=== PATIENT | male | born 1940 | race Caucasian/White ===

== ENCOUNTER → 2018-02-17 | Outpatient (CLI) | payer MEDICARE, OTHER ==
[2018-02-17 12:00] LABS: Basophils # (auto) 0 uL; Basophils % (auto) 0.7 % (0.0-2.0); Eosinophils # (auto) 0.2 uL; Hematocrit 46.5 % (41.0-53.0); Hemoglobin 15.6 g/dL (13.5-17.5); Lymphocytes # (auto) 1.6 uL; Lymphocytes % (auto) 24.6 % (10.0-50.0); Mean Corpuscular Hemoglobin 32.9 pg (28.0-32.0); Mean Corpuscular Hgb Conc. 33.6 g/dL (32.0-36.0); Mean Corpuscular Volume 97.8 fL (80.0-100.0); Monocytes # (auto) 0.4 uL; Monocytes % (auto) 6.7 % (0.0-12.0); Neutrophils # (auto) 4.2 uL; Nucleated Red Blood Cells % 0.1 %; Platelet Count (auto) 143 10^3/uL (140-450); Red Blood Cells 4.75 10^6/uL (4.5-5.90); Red Cell Distribution Width 13.2 % (11.8-14.3); White Blood Cell 6.5 10^3/uL (4.4-10.8)
[2018-02-17 12:03] LABS: Urine Blood Negative /uL (Negative); Urine Specific Gravity 1.016 (1.001-1.035)
[2018-02-17 12:16] LABS: Albumin 3.7 g/dL (3.4-5.0); BUN/Creatinine Ratio 19.4; Bilirubin, Total 0.9 mg/dL (0.2-1.0); Calcium 8.9 mg/dL (8.5-10.1); Potassium 4.2 mmol/L (3.5-5.1); Total Protein 6.7 g/dL (6.4-8.2)
[2018-02-17 12:19] LABS: Free T4 (Free Thyroxine) 1.28 ng/dL (0.89-1.76); Prostate Specific Antigen 1.02 ng/mL (0.0-4.0)
== END | disposition home or self-care (01) ==
LOC: LAB 08:22
PROVIDERS: ATTEND Internal Medicine
DX: E78.5 Hyperlipidemia, unspecified (principal); D64.9 Anemia, unspecified; I10 Essential (primary) hypertension; E11.9 Type 2 diabetes mellitus without complications; E03.9 Hypothyroidism, unspecified; E55.9 Vitamin D deficiency, unspecified; R53.81 Other malaise; R97.20 Elevated prostate specific antigen [PSA]; D51.9 Vitamin B12 deficiency anemia, unspecified; N39.0 Urinary tract infection, site not specified
CPT/HCPCS: 36415; 80053; 80061; 81003; 82306; 82607; 83036; 84153; 84403; 84439; 84443; 85025

== ENCOUNTER → 2019-01-14 | Outpatient (CLI) | payer MEDICARE, BC ==
[2019-01-14 11:59] LABS: Basophils # (auto) 0 uL; Basophils % (auto) 0.6 % (0.0-2.0); Eosinophils # (auto) 0.1 uL; Eosinophils % (auto) 2.3 % (0.0-7.0); Hemoglobin 15.9 g/dL (13.5-17.5); Lymphocytes # (auto) 1.3 uL; Lymphocytes % (auto) 21.4 % (10.0-50.0); Mean Corpuscular Hemoglobin 32.9 pg (28.0-32.0); Mean Corpuscular Hgb Conc. 33.8 g/dL (32.0-36.0); Mean Corpuscular Volume 97.4 fL (80.0-100.0); Monocytes # (auto) 0.4 uL; Monocytes % (auto) 7.1 % (0.0-12.0); Neutrophils # (auto) 4.3 uL; Neutrophils % (auto) 68.6 % (37.0-80.0); Nucleated Red Blood Cells % 0.1 %; Platelet Count (auto) 147 10^3/uL (140-450); Red Blood Cells 4.83 10^6/uL (4.5-5.90); Red Cell Distribution Width 13.3 % (11.8-14.3); White Blood Cell 6.3 10^3/uL (4.4-10.8)
[2019-01-14 12:03] LABS: Urine Blood Negative /uL (Negative); Urine Specific Gravity 1.016 (1.001-1.035)
[2019-01-14 12:04] LABS: INR 0.93 (0.9-1.15)
[2019-01-14 12:10] LABS: Potassium 4.2 mmol/L (3.5-5.1)
== END | disposition home or self-care (01) ==
LOC: Rad HDHVI 10:26
PROVIDERS: ATTEND Internal Medicine
DX: Z01.812 Encounter for preprocedural laboratory examination (principal); D64.9 Anemia, unspecified; R79.1 Abnormal coagulation profile; I10 Essential (primary) hypertension; N39.0 Urinary tract infection, site not specified; M17.11 Unilateral primary osteoarthritis, right knee; L92.0 Granuloma annulare; M25.561 Pain in right knee
CPT/HCPCS: 36415; 71046; 80048; 81003; 85025; 85610; 85730

== ENCOUNTER → 2020-11-05 | Outpatient (CLI) | payer MEDICARE, BC ==
[2020-11-05 11:39] LABS: Basophils # (auto) 0 10 ^3/uL (0-0.2); Basophils % (auto) 0.6 % (0.0-2.0); Eosinophils # (auto) 0.3 10 ^3/uL (0-0.8); Eosinophils % (auto) 4.1 % (0.0-7.0); Hematocrit 42.8 % (41.0-53.0); Hemoglobin 14.5 g/dL (13.5-17.5); Lymphocytes # (auto) 1.7 10 ^3/uL (0.4-5.4); Lymphocytes % (auto) 28.2 % (10.0-50.0); Mean Corpuscular Hemoglobin 33.9 pg (28.0-32.0); Mean Corpuscular Volume 99.8 fL (80.0-100.0); Monocytes # (auto) 0.5 10 ^3/uL (0-1.3); Monocytes % (auto) 7.8 % (0.0-12.0); Neutrophils # (auto) 3.6 10 ^3/uL (1.6-8.6); Neutrophils % (auto) 59.3 % (37.0-80.0); Nucleated Red Blood Cells % 0.1 %; Red Blood Cells 4.29 10^6/uL (4.5-5.90); Red Cell Distribution Width 12.8 % (11.8-14.3); White Blood Cell 6.1 10^3/uL (4.4-10.8)
[2020-11-05 11:45] LABS: Urine Blood Negative /uL (Negative); Urine Specific Gravity 1.019 (1.001-1.035)
[2020-11-05 11:59] LABS: Potassium 3.8 mmol/L (3.5-5.1)
[2020-11-05 12:01] LABS: Prostate Specific Antigen 0.94 ng/mL (0.0-4.0)
[2020-11-05 12:09] LABS: Albumin 3.4 g/dL (3.4-5.0); BUN/Creatinine Ratio 32.7; Bilirubin, Total 0.4 mg/dL (0.2-1.0); Calcium 8.6 mg/dL (8.5-10.1); Total Protein 6.5 g/dL (6.4-8.2)
== END | disposition home or self-care (01) ==
LOC: LAB 08:21
PROVIDERS: ATTEND Internal Medicine
DX: C61 Malignant neoplasm of prostate (principal); D51.3 Other dietary vitamin B12 deficiency anemia; I10 Essential (primary) hypertension; E11.9 Type 2 diabetes mellitus without complications; E55.9 Vitamin D deficiency, unspecified; R00.2 Palpitations; R53.1 Weakness; R30.0 Dysuria
CPT/HCPCS: 36415; 80053; 80061; 81003; 82306; 82607; 83036; 84153; 84403; 84439; 84443; 85025

== ENCOUNTER → 2022-05-07 | Outpatient (CLI) | payer MEDICARE, BC ==
[2022-05-07 11:42] LABS: Basophils # (auto) 0 10 ^3/uL (0-0.2); Basophils % (auto) 0.6 % (0.0-2.0); Eosinophils # (auto) 0.1 10 ^3/uL (0-0.8); Hemoglobin 14.4 g/dL (13.5-17.5); Lymphocytes # (auto) 1.2 10 ^3/uL (0.4-5.4); Lymphocytes % (auto) 26.3 % (10.0-50.0); Mean Corpuscular Hgb Conc. 32.9 g/dL (32.0-36.0); Mean Corpuscular Volume 100.3 fL (80.0-100.0); Monocytes # (auto) 0.3 10 ^3/uL (0-1.3); Monocytes % (auto) 7.4 % (0.0-12.0); Neutrophils # (auto) 2.9 10 ^3/uL (1.6-8.6); Neutrophils % (auto) 62.7 % (37.0-80.0); Red Blood Cells 4.38 10^6/uL (4.5-5.90); Red Cell Distribution Width 13.2 % (11.8-14.3); White Blood Cell 4.6 10^3/uL (4.4-10.8)
[2022-05-07 11:44] LABS: Urine Blood Negative /uL (Negative); Urine Specific Gravity 1.023 (1.001-1.035)
[2022-05-07 11:59] LABS: Potassium 4.6 mmol/L (3.5-5.1)
[2022-05-07 12:09] LABS: Albumin 3.2 g/dL (3.4-5.0); BUN/Creatinine Ratio 20.7; Bilirubin, Direct 0.2 mg/dL (0-0.2); Bilirubin, Total 0.4 mg/dL (0.2-1.0); Total Protein 6.2 g/dL (6.4-8.2)
== END | disposition home or self-care (01) ==
LOC: LAB 10:29
PROVIDERS: ATTEND Internal Medicine
DX: D51.3 Other dietary vitamin B12 deficiency anemia (principal); D64.9 Anemia, unspecified; E11.9 Type 2 diabetes mellitus without complications; E55.9 Vitamin D deficiency, unspecified; I10 Essential (primary) hypertension; R00.2 Palpitations; R53.1 Weakness; R30.0 Dysuria; C61 Malignant neoplasm of prostate
CPT/HCPCS: 36415; 80048; 80061; 80076; 81003; 82306; 83036; 84153; 84403; 84443; 85025

== ENCOUNTER → 2022-06-09 | Outpatient (CLI) | payer MEDICARE, BC | END | disposition home or self-care (01) | LOC: Rad HDHVI 08:53 | PROVIDERS: ATTEND Internal Medicine | DX: I08.3 Combined rheumatic disorders of mitral, aortic and tricuspid valves (principal); E78.5 Hyperlipidemia, unspecified; I10 Essential (primary) hypertension | CPT/HCPCS: 93306 ==

== ENCOUNTER → 2022-06-11 | Outpatient (CLI) | payer MEDICARE, BC ==
[~2022-06-11] VITALS: Ht 180.3 cm; Wt 81.6 kg
[~2022-06-11] MED LIST: ADENOSINE 69 MG in GIVE UN-DILUTED 0 ML IV ONE; ADENOSINE 90 MG/30 ML INJ IV ONE
== END | disposition home or self-care (01) ==
LOC: Rad HDHVI 09:04
PROVIDERS: ATTEND Internal Medicine
DX: E78.2 Mixed hyperlipidemia (principal); R42 Dizziness and giddiness; I10 Essential (primary) hypertension; R06.02 Shortness of breath; E78.5 Hyperlipidemia, unspecified
CPT/HCPCS: 78452; 93005; 96374; 96375; A9500; J0153

== ENCOUNTER → 2023-11-04 | Outpatient (CLI) | payer MEDICARE, BC | END | disposition home or self-care (01) | LOC: Rad HDHVI 14:31 | PROVIDERS: ATTEND Internal Medicine Cardiovascular Disease | DX: I65.23 Occlusion and stenosis of bilateral carotid arteries (principal); I10 Essential (primary) hypertension; E78.5 Hyperlipidemia, unspecified | CPT/HCPCS: 93880 ==

== ENCOUNTER → 2023-11-09 | Outpatient (CLI) | payer MEDICARE, BC | END | disposition home or self-care (01) | LOC: Rad HDHVI 12:52 | PROVIDERS: ATTEND Internal Medicine Cardiovascular Disease | DX: I08.2 Rheumatic disorders of both aortic and tricuspid valves (principal); R06.02 Shortness of breath; R42 Dizziness and giddiness | CPT/HCPCS: 93306 ==

== ENCOUNTER → 2023-11-16 | Outpatient (CLI) | payer MEDICARE, BC ==
[~2023-11-16] VITALS: Ht 180.3 cm; Wt 83.9 kg
[~2023-11-16] MED LIST changes: -ADENOSINE 69 MG in GIVE UN-DILUTED 0 ML IV ONE; +ADENOSINE 70 MG in GIVE UN-DILUTED 0 ML IV ONE
== END | disposition home or self-care (01) ==
LOC: Rad HDHVI 12:47
PROVIDERS: ATTEND Internal Medicine Cardiovascular Disease
DX: I10 Essential (primary) hypertension (principal); R06.02 Shortness of breath; R42 Dizziness and giddiness; E78.00 Pure hypercholesterolemia, unspecified; Z82.49 Family history of ischemic heart disease and other diseases of the circulatory system
CPT/HCPCS: 78452; 93005; 96374; 96375; A9500; J0153

== ENCOUNTER → 2024-06-13 | Outpatient (CLI) | payer MEDICARE, BC ==
[~2024-06-13] MED LIST changes: -ADENOSINE 70 MG in GIVE UN-DILUTED 0 ML IV ONE; -ADENOSINE 90 MG/30 ML INJ IV ONE; +ASCO500T11 PO; +CHOL400C15 PO; +DRON400T PO; +FINA5TAB4 PO; +GLUC1CAP12 PO; +MAGN100T9 PO; +MULTTAB99 PO; +OMEG-20 PO; +POM; +POM IN; +POTA99TA3 PO; +RIVA10TA PO; +SELE200T23 PO; +TAMS-35 PO; +TERA5CAP58 PO
[2024-06-13 13:05] VITALS: BP 148/97; PULSE 79; RESP 16; O2SAT 97
[2024-06-13 13:14] VITALS: BP 150/67; PULSE 65; RESP 16; O2SAT 97
== END | disposition home or self-care (01) ==
LOC: Rad HDHVI 12:52
PROVIDERS: ATTEND Internal Medicine Cardiovascular Disease
DX: Z01.818 Encounter for other preprocedural examination (principal); I45.10 Unspecified right bundle-branch block; R94.31 Abnormal electrocardiogram [ECG] [EKG]; I48.91 Unspecified atrial fibrillation; R00.2 Palpitations; R06.02 Shortness of breath
CPT/HCPCS: 71046; 93005; G0463

== ENCOUNTER 2024-06-16 08:20 | Day surgery (SDC) | payer MEDICARE, BC ==
[2024-06-13 15:19] LABS: Basophils # (auto) 0 10 ^3/uL (0-0.2); Basophils % (auto) 0.5 % (0.0-2.0); Eosinophils # (auto) 0.1 10 ^3/uL (0-0.8); Eosinophils % (auto) 1.3 % (0.0-7.0); Hemoglobin 15.1 g/dL (13.5-17.5); Lymphocytes # (auto) 1.3 10 ^3/uL (0.4-5.4); Monocytes # (auto) 0.6 10 ^3/uL (0-1.3); Neutrophils # (auto) 5.4 10 ^3/uL (1.6-8.6)
[2024-06-13 15:23] LABS: Hematocrit 43.8 % (41.0-53.0); Lymphocytes % (auto) 17.3 % (10.0-50.0); Mean Corpuscular Hemoglobin 35.1 pg (28.0-32.0); Mean Corpuscular Hgb Conc. 34.5 g/dL (32.0-36.0); Mean Corpuscular Volume 101.7 fL (80.0-100.0); Neutrophils % (auto) 72.9 % (37.0-80.0); Nucleated Red Blood Cells % 0.1 %; Platelet Count (auto) 156 10^3/uL (140-450); Red Blood Cells 4.31 10^6/uL (4.5-5.90); Red Cell Distribution Width 13.4 % (11.8-14.3); White Blood Cell 7.4 10^3/uL (4.4-10.8)
[2024-06-13 15:32] LABS: Anion Gap 4 (5-15); Carbon Dioxide 28 mmol/L (20-30); Chloride 111 mmol/L (98-107); Potassium 4.7 mmol/L (3.5-5.1); Sodium 143 mmol/L (136-145)
[2024-06-13 15:33] LABS: Calcium 9.3 mg/dL (8.7-10.4)
[2024-06-13 15:38] LABS: BUN/Creatinine Ratio 16.5 (10.0-20.0); Blood Urea Nitrogen 20 mg/dL (9-23); Glucose 104 mg/dL (74-106)
[2024-06-13 16:03] LABS: INR 1.02 (0.9-1.15); Partial Thromboplastin Time 27.9 SEC (24.5-34.5); Prothrombin Time 10.8 sec (9.3-11.8)
[~2024-06-16] VITALS: Ht 180.3 cm; Wt 83.0 kg
[~2024-06-16 08:20] MED LIST changes: -FINA5TAB4 PO; -TAMS-35 PO
[2024-06-16] MEDS ORDERED: VANCOMYCIN HCL 1000 MG VL ONE ×2 (12:39→12:45)
[2024-06-16] MEDS ORDERED: fentaNYL CITRATE 100 MCG/2 ML VL ONE (12:39)
[2024-06-16] MEDS ORDERED: MIDAZOLAM HCL 2MG/2ML 2ml VIAL (1mg/ml) ONE (12:40)
[2024-06-16] MEDS ORDERED: LIDOCAINE 2%HCL (LOCAL ANESTH.) INJ 20ML MDV ONE (12:40)
[2024-06-16] MEDS ORDERED: VANCOMYCIN 1GM/200ML 200 ML IV ONE (12:40)
[2024-06-16 13:47] VITALS: BP 130/64; PULSE 60; RESP 15; TEMP 98.5; O2SAT 95
[2024-06-16 14:00] VITALS: BP 126/60; PULSE 60; RESP 15; O2SAT 93
[2024-06-16 14:14] VITALS: BP 141/66; PULSE 60; RESP 17; O2SAT 93
[2024-06-16 14:26] VITALS: BP 146/66; PULSE 60; RESP 16; O2SAT 96
[2024-06-16] MEDS ORDERED: CEPH500C PO (14:46)
[2024-06-16] MEDS ORDERED: CALCTAB91 PO (14:46)
[2024-06-16] MEDS ORDERED: FLUT1SPR5 (14:46)
[2024-06-16] MEDS ORDERED: MAGN100T9 PO (14:46)
[2024-06-16 14:58] VITALS: BP 145/49; PULSE 60; RESP 15; O2SAT 95
[2024-06-16 15:22] VITALS: BP 135/75; PULSE 60; RESP 16; O2SAT 97
[2024-06-16] MEDS ORDERED: CEPHALEXIN 250 MG CAP PO SCH (18:00)
== END 2024-06-16 15:40 | disposition home or self-care (01) ==
LOC: CATH 08:20
PROVIDERS: ATTEND Internal Medicine Cardiovascular Disease
DX: I49.5 Sick sinus syndrome (principal); R00.1 Bradycardia, unspecified; I10 Essential (primary) hypertension; Z87.891 Personal history of nicotine dependence
CPT/HCPCS: 33208; 36415; 71045; 80048; 85025; 85610; 85730; C1785; C1898; J2250; J3010; J3370; 99152; 99153

== ENCOUNTER → 2024-09-01 | Outpatient (CLI) | payer MEDICARE, BC ==
[~2024-09-01] MED LIST changes: +CALCTAB91 PO; +CEPH500C PO; +FLUT1SPR5; -POM; -POM IN
[2024-09-01 09:57] VITALS: BP 128/63; PULSE 75; RESP 18; O2SAT 96
[2024-09-01] MEDS: SODIUM CHLORIDE 0.9% 500 ML IV ONE (10:15)
[2024-09-01 11:50] VITALS: BP 153/75; PULSE 76; RESP 18; O2SAT 96
== END | disposition home or self-care (01) ==
LOC: CHF HDHVI 09:55
PROVIDERS: ATTEND Internal Medicine Cardiovascular Disease
DX: E86.0 Dehydration (principal); I10 Essential (primary) hypertension
CPT/HCPCS: 96360; G0463; J7040

== ENCOUNTER → 2025-03-07 | Outpatient (CLI) | payer MEDICARE, BC ==
--- NOTE | 2025-03-07 13:02 | DVH ---
EXAM: CT CT R HIP WITH OUT CONTRAST HISTORY: HIP PAIN POST FALL COMPARISON: None TECHNIQUE: Noncontrast axial CT images of the right hip were performed. Sagittal and coronal reformat raciel images were obtained. This CT exam was performed using one or more of the following dose reductio n techniques: Automated exposure control, adjustment of the mA and/or kV according to patient size, o r use of iterative reconstruction technique. Radiation Dose Information: CT Dose: CTDI volume is 19.8 9 mGy. Dose-length product is 337.91 mGy*cm FINDINGS: No acute fracture is identified about the right hip. There is moderate osteoarthritis of th e right hip with marginal osteophytes and joint space narrowing, greater posteriorly. There are aceta bular subcortical cystic changes. There is extensive sigmoid colon diverticulosis, not fully imaged h ere. The prostate is likely moderately enlarged, but not fully imaged here. There is a small fatty r ight inguinal indirect hernia. IMPRESSION: 1. Moderate osteoarthritis of the right hip without evidence of acute fracture. 2. Extensive sigmoid colon diverticulosis, not fully imaged here. 3. Probable moderate prostatic enlargement, not fully imaged here.
--- NOTE | 2025-03-07 13:31 | DVH ---
XY CHEST TWO VIEWS ROUTINE CLINICAL HISTORY: SOB COMPARISON: XY CHEST TWO VIEWS ROUTINE on DOS: 06/17/24, XY CHEST TWO VIEWS ROUTINE on DOS: 06/13/24 TECHNIQUE: Frontal and lateral view of the chest was obtained FINDINGS: Lines and Tubes: Dual lead left-sided pacemaker Lungs: No focal consolidation. Pleura: No effusion. No pneumothorax. Cardiomediastinal contours: Unremarkable Bones: No acute osseous abnormality. IMPRESSION: No acute cardiopulmonary disease.
--- NOTE | 2025-03-07 14:11 | DVH ---
EXAM: CT LS SPINE WO CONTRAST HISTORY: LBP COMPARISON: None CTDIvol 28.45 mGy, DLP 734.25 mGy*cm. TECHNIQUE: Multiple axial CT images of the spine were obtained using bone algorithm. Axial and shore l reformatting was done. Bone and soft tissue windows were reviewed. FINDINGS: No evidence of definite acute fracture, spinal dislocation, or significant appearing acute subluxatio n is seen. 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 This is most advanced at L2-L3, L3-L4 and L4-L5 wher e there is associated moderate to severe canal and bilateral foraminal stenosis. Vascular calcifications of the aorta. Bilateral renal cysts, partially imaged. IMPRESSION: No definite CT evidence of acute fracture or dislocation of the bony lumbar spine.
== END | disposition home or self-care (01) ==
LOC: Rad HDHVI 10:04
PROVIDERS: ATTEND Internal Medicine Cardiovascular Disease
DX: M47.816 Spondylosis without myelopathy or radiculopathy, lumbar region (principal); M48.061 Spinal stenosis, lumbar region without neurogenic claudication; M16.11 Unilateral primary osteoarthritis, right hip; M25.751 Osteophyte, right hip; M25.851 Other specified joint disorders, right hip; K57.30 Diverticulosis of large intestine without perforation or abscess without bleeding; K40.90 Unilateral inguinal hernia, without obstruction or gangrene, not specified as recurrent; M25.78 Osteophyte, vertebrae; I70.0 Atherosclerosis of aorta; N28.1 Cyst of kidney, acquired; R06.02 Shortness of breath; M54.50 Low back pain, unspecified
CPT/HCPCS: 71046; 72131; 73700

== ENCOUNTER 2025-08-15 13:44 | Outpatient (CLI) | payer MEDICARE, BC ==
--- NOTE | 2025-08-16 16:08 | DVHSR ---
APPROVED REPORT EXAM: Two-dimensional and M-mode echocardiogram with Doppler and color Doppler. Surgery/Intervention Pacemaker: DIMENSIONS LVDd3.9 (3.8-5.7cm)LA (2D)4.1 (1.9-4.0cm)Aortic Root3.5 (2.0-3.7cm) LVDs2.5 (2.5-4.0cm)LA (MM) (1.9-4.0cm)Aortic Cusp Exc1.6 (1.5-2.0cm) EF (%) 55.0 (55-70%)Rt. Atrium4.2 (1.9-4.0cm)Asc. Aorta cm IVSd1.0 (0.7-1.1cm)RV (D) (1.8-2.4cm) PWd1.1 (0.7-1.1cm) Mitral Valve MitralMitral Stenosis E wave0.71m/sMV Mean GR.mmHg A wave0.91m/sMV Peak GR.mmHg E/A ratio0.82D MVAcm2 DECEL [id number] 1/2 Timems Aortic Valve Aortic ValveAortic Stenosis V10.97m/Rufion Mean GR.4mmHg V21.36m/Rufino Peak GR.7mmHg LVOT Diameter2.2 (1.8-2.4cm)Doppler AVA2.71cm2 Pulmonic Valve V21.05m/s Tricuspid Valve TR Velocity2.86m/s [id number] LEFT VENTRICLE The left ventricle is normal size. The left ventricle is normal in structure and function. The Ejection Fraction is within normal limits. RIGHT VENTRICLE The right ventricle is normal size. There is a pacemaker lead in the right ventricle. ATRIA The left atrium is enlarged. The right atrium is enlarged. A pacemaker is seen in the right atrium. The interatrial septum is intact with no evidence for an atrial septal defect. MITRAL VALVE The mitral valve is normal in structure. There is no mitral valve regurgitation noted. PULMONIC VALVE The pulmonic valve is not well visualized. TRICUSPID VALVE The tricuspid valve is grossly normal. There is mild tricuspid regurgitation. Right ventricular systolic pressure is 30-40 mmHg. AORTIC VALVE The aortic valve opens well. There is mild aortic regurgitation. GREAT VESSELS The aortic root is normal size. PERICARDIAL EFFUSION There is no pericardial effusion. Other Information Technically limited study due to body habitus. Conclusion EF 55% LVH LAE CINDY MILD TR MILD AI
== END 2025-08-15 17:00 | disposition home or self-care (01) ==
LOC: Rad HDHVI 13:44
PROVIDERS: ATTEND Internal Medicine Cardiovascular Disease
DX: I08.2 Rheumatic disorders of both aortic and tricuspid valves (principal); R06.02 Shortness of breath; R42 Dizziness and giddiness
CPT/HCPCS: 93306

== ENCOUNTER 2025-08-21 09:20 | Outpatient (CLI) | payer MEDICARE, BC ==
[~2025-08-21] VITALS: Ht 180.3 cm; Wt 83.5 kg
[2025-08-21] MEDS ORDERED: ADENOSINE 90 MG/30 ML INJ IV ONE (11:07)
[2025-08-21] MEDS ORDERED: ADENOSINE 70 MG in GIVE UN-DILUTED 0 ML IV ONE (11:30)
== END 2025-08-21 17:00 | disposition home or self-care (01) ==
LOC: Rad HDHVI 09:20
PROVIDERS: ATTEND Internal Medicine Cardiovascular Disease
DX: I45.4 Nonspecific intraventricular block (principal); I49.1 Atrial premature depolarization; I11.0 Hypertensive heart disease with heart failure; I50.33 Acute on chronic diastolic (congestive) heart failure; I73.9 Peripheral vascular disease, unspecified; I49.5 Sick sinus syndrome; I48.0 Paroxysmal atrial fibrillation; E78.00 Pure hypercholesterolemia, unspecified; R06.02 Shortness of breath; R42 Dizziness and giddiness; R07.89 Other chest pain; Z82.49 Family history of ischemic heart disease and other diseases of the circulatory system; Z95.0 Presence of cardiac pacemaker
CPT/HCPCS: 78452; 93017; A9500; J0153